=== PATIENT | female | born 1995 | race Caucasian/White ===

== ENCOUNTER → 2023-07-04 08:54 | Outpatient (CLI) | payer BC, SELFPAY ==
[2023-07-04 09:42] LABS: Influenza A - CEPHEID Flu A NEGATIVE (NEGATIVE); Influenza B - CEPHEID Flu B NEGATIVE (NEGATIVE); Respiratory Syncytial Virus POSITIVE (Negative)
[2023-07-04 09:46] LABS: COVID-19 CEPHEID 4-PLEX PCR Negative (Negative)
== END ==
PROVIDERS: Visit Provider Physician Assistant
DX: R05.1 Acute cough (principal)
CPT/HCPCS: 0241U

== ENCOUNTER → 2024-02-06 15:37 | Outpatient (CLI) | payer BC, SELFPAY ==
--- NOTE | 2024-02-06 15:39 | DI.US.S_ITS ---
PROCEDURE: US PELVIC COMPLETE INDICATIONS: confirm IUD placement TECHNIQUE: Real-time scanning was performed of the pelvic organs, with image documentation. Additional endovaginal scanning was necessary due to incomplete visualization of the adnexal and endometrial structures by transabdominal scanning. COMPARISON: None. FINDINGS: Uterus: Uterus is anteverted and normal in size at 8.0 x 3.0 x 4.3 cm. The myometrium is homogeneous. The endometrium measures 2.7 mm combined thickness. IUD is in appropriate location. Ovaries: The right ovary measures 2.2 x 3.2 x 2.5 cm, with a calculated ovarian volume of 9.1 cc. The left ovary measures 2.0 x 2.7 x 1.8 cm, with a calculated ovarian volume of 5.1 cc. The ovaries have a normal sonographic appearance. Less than 12 follicles can be seen in each ovary. No adnexal masses are seen. Other: No pathologic free abdominal or pelvic fluid. IMPRESSION: Unremarkable exam. IUD in appropriate location. We strive to produce accurate, complete, and clear reports of imaging services. To assist us in improving patient care, this report was composed using standard report templates and voice recognition software. Therefore, it may contain abnormal punctuation, insertions and/or omissions. Occasional wrong-word or sound-alike substitutions may occur. Though we review the report and make efforts to correct it, we do recommend that the report be read carefully in proper context to recognize any text inaccuracies. Dictated by: Carolynn Peterson M.D. on 02/06/2024 at 16:37 Approved by: Carolynn Peterson M.D. on 02/06/2024 at 16:38
== END ==
LOC: US 15:38
PROVIDERS: Referring Provider Obstetrics & Gynecology; Visit Provider Obstetrics & Gynecology
DX: T83.84XA Pain due to genitourinary prosthetic devices, implants and grafts, initial encounter (principal)
CPT/HCPCS: 76830; 76856; 93975

== ENCOUNTER → 2024-11-08 14:41 | Outpatient (CLI) | payer OTHER, SELFPAY ==
[2024-11-08 15:17] LABS: Add Manual Diff / Slide Review NO; Basophils Absolute Auto 100 /uL (0-100); Eosinophils Absolute Auto 300 /uL (0-450); Eosinophils Percent Auto 2.9 % (2-4); Hematocrit 38.8 % (36-46); Hemoglobin 13.7 g/dL (12.0-16.0); Lymphocytes Absolute Auto 3000 /uL (1100-4500); Lymphocytes Percent Auto 29.6 % (25-40); Mean Corpuscular HGB Conc 35.4 % (30-36); Mean Corpuscular Hemoglobin 33.5 PG (26-34); Mean Corpuscular Volume 94.6 fL (80-100); Monocytes Absolute Auto 500 /uL (0-900); Monocytes Percent Auto 5.2 % (3-14); Neutrophils Absolute Auto 6300 /uL (1500-7000); Neutrophils Percent Auto 61.3 % (50-75); Platelet Count 274 X10^3/uL (150-400); Red Cell Distribution Width 11.7 % (11.6-14.8); White Blood Cell Count 10.3 X10^3/uL (4.5-11.0)
[2024-11-08 15:38] LABS: Alanine Aminotransferase 23 IU/L (<35); Alkaline Phosphatase 53 U/L (38-126); Aspartate Aminotransferase 25 IU/L (14-36); BUN Creatinine Ratio 20.6 (6-22); Bilirubin Total 0.6 mg/dL (0.2-1.3); Blood Urea Nitrogen 13 mg/dL (7-17); Calcium 9.8 mg/dL (8.4-10.2); Carbon Dioxide 28 mmol/L (22-32); Chloride 104 mmol/L (98-107); Estimated Glomerular Filt Rate > 60 mL/min (>60); Globulin 2.5 g/dL (1.7-4.1); Glucose 92 mg/dL (70-99); HEMOLYSIS < 15 (0-50); Potassium 4.6 mmol/L (3.4-5.1); Sodium 140 mmol/L (137-145); Total Protein 7.5 g/dL (6.3-8.2)
[2024-11-08 16:09] LABS: Ferritin 50 ng/mL (6-137)
== END ==
PROVIDERS: PCP Family Medicine; Referring Provider Family Medicine; Visit Provider Family Medicine
DX: G43.009 Migraine without aura, not intractable, without status migrainosus (principal); Z87.820 Personal history of traumatic brain injury; Z86.2 Personal history of diseases of the blood and blood-forming organs and certain disorders involving the immune mechanism
CPT/HCPCS: 36415; 80053; 82728; 85025

== ENCOUNTER → 2025-05-28 07:36 | Outpatient (CLI) | payer OTHER, SELFPAY ==
--- NOTE | 2025-05-28 07:38 | DI.RAD.S_ITS ---
PROCEDURE: XR FOOT LT MIN 3V INDICATIONS: pain over 4th/5th toes/foot TECHNIQUE: 3 views of the foot were acquired. COMPARISON: None. FINDINGS: Bones: Mildly displaced obliquely oriented fracture of the 5th proximal phalanx with possible extension to the interphalangeal joint space. Soft tissues: No tibiotalar joint effusion. Achilles tendon appears normal. IMPRESSION: Mild displaced fracture of the 5th proximal phalanx. Dictated by: Bobby Fagan M.D. on 05/28/2025 at 9:29 Approved by: Bobby Fagan M.D. on 05/28/2025 at 9:30
== END ==
PROVIDERS: PCP Family Medicine; Referring Provider Nurse Practitioner Family; Visit Provider Nurse Practitioner Family
DX: S92.512A Displaced fracture of proximal phalanx of left lesser toe(s), initial encounter for closed fracture (principal); X58.XXXA Exposure to other specified factors, initial encounter
CPT/HCPCS: 73630